=== PATIENT | male | born 1985 | race Caucasian/White ===

== ENCOUNTER 2022-02-13 14:44 | Emergency (ER) | payer OTHER, SELFPAY ==
[2022-02-13 14:49] VITALS: BP 151/84; PULSE 99; RESP 14; TEMP 36.9; O2SAT 99
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
== END 2022-02-13 15:19 | disposition home or self-care (01) ==
LOC: ER 19:52
PROVIDERS: Emergency Provider Emergency Medicine
DX: T24.132A Burn of first degree of left lower leg, initial encounter (principal); T31.0 Burns involving less than 10% of body surface; X16.XXXA Contact with hot heating appliances, radiators and pipes, initial encounter
CPT/HCPCS: 99283; 99284